=== PATIENT | male | born 1990 | race Caucasian/White ===

== ENCOUNTER 2023-11-26 15:36 | Emergency (ER) | payer SELFPAY ==
[2023-11-26] MEDS: Sodium Chloride 0.9% 1,000 ML IV STA ×2 (16:03→16:47)
[2023-11-26] MEDS: Ondansetron 4 MG/2 ML SDV IVPUSH STA (16:03)
[2023-11-26 16:08] LABS: BASOPHILS ABSOLUTE AUTO 0.05 K/uL (0.00-0.20); BASOPHILS PERCENT AUTO 0.5 % (0.0-1.0); EOSINOPHILS PERCENT AUTO 4.2 % (0.0-6.0); HEMATOCRIT 48.1 % (42.0-52.0); HEMOGLOBIN 16.4 g/dL (14.0-18.0); IMMATURE GRAN ABSOLUTE AUTO 0.07 K/uL (0.00-0.05); IMMATURE GRAN PERCENT AUTO 0.7 % (0.0-0.4); LYMPHOCYTES ABSOLUTE AUTO 2.39 K/uL (1.00-4.80); LYMPHOCYTES PERCENT AUTO 25.1 % (24.0-44.0); MEAN CORPUSCULAR HEMOGLOBIN 28.8 pg (28.0-32.0); MEAN CORPUSCULAR HGB CONC 34.1 g/dL (32.0-36.0); MEAN CORPUSCULAR VOLUME 84.4 fL (83.0-99.0); MEAN PLATELET VOLUME 8.8 fL (9.4-12.4); MONOCYTES ABSOLUTE AUTO 0.77 K/uL (0.00-0.80); MONOCYTES PERCENT AUTO 8.1 % (0.0-8.0); NEUTROPHILS ABSOLUTE AUTO 5.84 K/uL (1.80-7.70); NEUTROPHILS PERCENT AUTO 61.4 % (41.0-71.0); PLATELET COUNT,PLT 257 K/uL (150-400); WHITE BLOOD CELL COUNT,WBC 9.52 K/uL (3.9-11.3)
[2023-11-26 16:34] LABS: A/G RATIO 0.9 (0.9-1.6); ALBUMIN 3.9 g/dL (3.4-5.0); BILIRUBIN TOTAL 0.7 mg/dL (0.2-1.0); CALCIUM 8.8 mg/dL (8.5-10.1); CARBON DIOXIDE,CO2 27.6 mmol/L (21.0-32.0); CREATININE 1.1 mg/dL (0.8-1.3); EST CRCL DRUG DOSING (CG) 102.68 mL/min; PROTEIN TOTAL,TP 8.2 g/dL (6.4-8.2)
[2023-11-26] MEDS: Magnesium Sulfate/Water 2 GM in Premix Bag 1 BAG IV STA (16:47)
== END 2023-11-26 17:48 | disposition home or self-care (01) ==
LOC: MW.ED 15:36
DX: A08.4 Viral intestinal infection, unspecified (principal); Z75.8 Other problems related to medical facilities and other health care
CPT/HCPCS: 36415; 80053; 83690; 83735; 85025; 96361; 96365; 96375; 99284; J2405; J3475; J7030

== ENCOUNTER 2024-03-07 20:07 | Emergency (ER) | payer OTHER ==
[2024-03-07] MEDS: Acetaminophen 500 MG Tab PO ONE (21:03)
[2024-03-07] MEDS: Ibuprofen 600 MG Tab PO ONE (21:38)
== END 2024-03-07 21:44 | disposition home or self-care (01) ==
LOC: MW.ED 20:07
DX: S06.0X0A Concussion without loss of consciousness, initial encounter (principal); S39.012A Strain of muscle, fascia and tendon of lower back, initial encounter; Z86.16 Personal history of COVID-19; V89.2XXA Person injured in unspecified motor-vehicle accident, traffic, initial encounter; Z75.8 Other problems related to medical facilities and other health care
CPT/HCPCS: 70450; 99284; A9270; 99283